=== PATIENT | male | born 1990 | race African-American/Black ===

== ENCOUNTER 2023-02-27 21:11 | Emergency (ER) | payer OTHER ==
[2023-02-27 21:20] VITALS: BP 119/70; PULSE 79; RESP 18; TEMP 98; BMI 78.5
== END 2023-02-27 22:16 | disposition home or self-care (01) ==
LOC: JERFT 21:11
DX: Z48.00 Encounter for change or removal of nonsurgical wound dressing (principal)
CPT/HCPCS: 99282-25

== ENCOUNTER 2023-06-19 22:38 | Emergency (ER) | payer OTHER ==
[2023-06-19 22:47] VITALS: BP 149/76; PULSE 83; RESP 18; TEMP 97; BMI 28.3
[2023-06-19] MEDS ORDERED: AMOX TR/POT CLAV 875MG/125MG TABLETS (FP) PO ONE (23:18)
[2023-06-19] MEDS ORDERED: ACETAMINOPHEN 500 MG TABLET (FP) PO ONE (23:20)
[2023-06-19] MEDS ORDERED: AMOX TR/POT CLAV 875MG/125MG TABLETS (FP) ONE (23:59)
[2023-06-19] MEDS ORDERED: ACETAMINOPHEN 325 MG TABLET (FP) ONE (23:59)
== END 2023-06-20 00:25 | disposition home or self-care (01) ==
LOC: JER 22:38
PROC: 0H97XZZ Drainage of Abdomen Skin, External Approach (ICD-10-PCS; principal; 2023-06-19)
DX: M79.604 Pain in right leg (principal); L02.214 Cutaneous abscess of groin
CPT/HCPCS: 82962; 87070; 87205; 99283-25

== ENCOUNTER 2023-11-30 13:29 | Emergency (ER) | payer OTHER ==
[2023-11-30 13:35] VITALS: BP 129/78; PULSE 74; RESP 16; TEMP 97.8; BMI 29.8
[2023-11-30 16:27] LABS: HIV INTERPRETATION NEGATIVE (NEGATIVE)
== END 2023-11-30 15:06 | disposition home or self-care (01) ==
LOC: JERFT 13:29
DX: L72.9 Follicular cyst of the skin and subcutaneous tissue, unspecified (principal)
CPT/HCPCS: 36415; 86803; 87389; 99283-25

== ENCOUNTER 2024-08-26 15:53 | Emergency (ER) | payer OTHER ==
[2024-08-26 16:11] VITALS: BP 131/83; PULSE 78; RESP 18; TEMP 98; BMI 30.9
== END 2024-08-26 17:32 | disposition home or self-care (01) ==
LOC: JERFT 15:53
PROC: 0H96XZZ Drainage of Back Skin, External Approach (ICD-10-PCS; principal; 2024-08-26)
DX: L02.214 Cutaneous abscess of groin (principal)
CPT/HCPCS: 87070; 87205; 99283-25